=== PATIENT | male | born 1995 | race Caucasian/White ===

== ENCOUNTER 2017-08-08 17:06 | Emergency (ER) | payer OTHER ==
[~2017-08-08] VITALS: Ht 175.3 cm; Wt 75.7 kg
[~2017-08-08 17:06] MED LIST: ALBUTEROL17 G1 IH; PROVENTIL,2.5 MG/0.5 IH; PULMICORT1 MG/2 ML IH; SINGULAIR10 MG PO; ZYRTEC5 MG PO
[2017-08-08 18:37] LABS: HEMATOCRIT 53.1 % (38.0-50.0); HEMOGLOBIN 18.4 G/DL (12.5-16.6); MCH 30.3 PG (29.0-34.0); MCHC 34.7 G/DL (30.0-36.0); MCV 87.3 FL (86-99); RBC DIS.WIDTH-CV 12.1 % (11.8-14.6); RBC DIS.WIDTH-SD 38.6 % (39-53); RED BLOOD COUNT 6.08 M/uL (4.00-5.50); WHITE BLOOD COUNT 23.3 K/uL (4.1-10.2)
[2017-08-08 18:47] LABS: ALBUMIN 5.3 g/dL (3.2-4.8); CHLORIDE 105 mEq/L (99-109); POTASSIUM 4.4 mEq/L (3.7-5.4); SODIUM 140 mEq/L (136-147)
[2017-08-08 18:49] LABS: GLUCOSE 104 mg/dL (70-99); TOTAL PROTEIN 8.8 g/dL (6.4-8.3)
[2017-08-08 18:51] LABS: TOTAL BILIRUBIN 0.7 mg/dL (0.0-1.0)
[2017-08-08 18:53] LABS: ALKALINE PHOSPHATASE 78 IU/L (3-129); GFR ESTIMATE (CALCULATED) > 59 mL/min/ (58.99-99999)
[2017-08-08 18:54] LABS: UREA NITROGEN (BUN) 20 mg/dL (9-23)
[2017-08-08 18:55] LABS: AST (GOT) 31 IU/L (2-34)
[2017-08-08 18:56] LABS: ALT (GPT) 44 IU/L (3-49)
[2017-08-08 19:56] LABS: HEMATOLOGY COMMENT 1 SN; PLAT.SUFFICIENCY ADEQUATE; PLATELET COUNT 281 K/uL (156-360)
[2017-08-08] MEDS ORDERED: ZOFRAN4 MG PO (21:49)
[2017-08-08] MEDS ORDERED: PROVENTIL HFA6.7 GM IH (21:49)
[2017-08-08 22:06] VITALS: BP 126/79
== END 2017-08-08 22:07 | disposition home or self-care (01) ==
LOC: EME 17:06
DX: J11.1 Influenza due to unidentified influenza virus with other respiratory manifestations (principal); J45.909 Unspecified asthma, uncomplicated; Z88.0 Allergy status to penicillin
CPT/HCPCS: 80053; 81003; 85027; 99281; 99284